=== PATIENT | female | born 1985 | race Caucasian/White ===

== ENCOUNTER 2022-12-07 15:38 | Emergency (ER) | payer SELFPAY ==
[~2022-12-07] VITALS: Ht 167.6 cm; Wt 173.7 kg
[2022-12-07 16:24] LABS: BASO% 0.2 % (0-3); EOS% 0.2 % (0-8); HEMOGLOBIN 12.2 g/dl (12.0-16.0); IMMATURE GRANULOCYTES 0.1 % (0.0-5.0); LYMPH% 6.8 % (15-41); MEAN CELL VOLUME 73.1 fL CALC (80.0-100.0); MEAN CORPUSCULAR HGB 22.3 pG CALC (26.0-32.0); MEAN CORPUSCULAR HGB CONC 30.5 g/dL CAL (32.0-36.0); MONO% 3.9 % (2-13); NEUT# 9.18 thou/uL (2.00-7.15); NEUT% 88.8 % (42-76); RED BLOOD COUNT 5.47 mill/uL (4.20-5.60); RED CELL DISTRI WIDTH 15.8 % (11.5-15.5)
[2022-12-07 16:39] LABS: ALBUMIN 4.4 g/dL (3.2-5.0); ALKALINE PHOSPHATASE 206 u/l (38-126); ANION GAP 13 (6-22 (CALC)); BILIRUBIN, TOTAL 3.1 mg/dL (0.02-1.3); BUN 11 mg/dL (7-17); BUN/CREATININE RATIO 18 (12-20 (CALC)); CARBON DIOXIDE 24 mmol/l (22-30); CHLORIDE 106 mmol/l (95-108); CREATININE 0.6 mg/dL (0.5-1.0); GFR FOR AFR.AMER. > 60 ML/MIN (>=60 (CALC)); GFR OTHER RACES > 60 ML/MIN (>=60 (CALC)); POTASSIUM 4.6 mmol/l (3.5-5.1); SGOT/AST 498 u/l (14-36); SODIUM 138 mmol/l (137-146); TOTAL PROTEIN 7.4 g/dL (6.3-8.2)
[2022-12-07 17:09] LABS: LIPASE 18594 u/l (23-300)
[2022-12-08 01:03] LABS: URINE BILIRUBIN - DIPSTICK SEE COMMNET (NEGATIVE); URINE BLOOD DIPSTICK SMALL (NEGATIVE); URINE COLOR YELLOW; URINE GLUCOSE - DIPSTICK NEGATIVE (NEGATIVE); URINE KETONE 40 mg/dL (NEGATIVE); URINE LEUK ESTERASE NEGATIVE (NEGATIVE); URINE NITRITE - DIPSTICK NEGATIVE (Negative); URINE PROTEIN - DIPSTICK NEGATIVE (NEG-TRACE); URINE SQUAMOUS EPITHELIAL CELL MANY EPI/hpf (0-FEW); URINE UROBILINOGEN - DIPSTICK 0.2 E.U./dL (0.2)
[2022-12-08 01:04] LABS: URINE BACTERIA MODERATE hpf; URINE MUCUS FEW hpf (NONE-FEW)
[2022-12-08 02:26] VITALS: BP 106/623
== END 2022-12-08 02:34 | disposition short-term general hospital (02) | DRG 440 ==
LOC: ED 15:38
PROVIDERS: Family Medicine
DX: K85.90 Acute pancreatitis without necrosis or infection, unspecified (principal); E66.01 Morbid (severe) obesity due to excess calories
CPT/HCPCS: Q9967